=== PATIENT | female | born 1960 | race Caucasian/White ===

== ENCOUNTER 2017-10-02 13:54 | Observation (INO) ==
--- NOTE | 2017-10-02 14:33 | Emergency Department Note ---
Disposition Clinical Impression: Weakness Disposition: Still a Patient Referrals: NONE,PCP [Primary Care Provider] - General Adult [facility] - General Chief complaint: ED Weakness Stated complaint: UTI / Weakness Time Seen by Provider: 10/02/17 14:10 Source: patient Limitations: no limitations - History of Present Illness Pain Scale: 0 - Related Data Allergies Allergy/AdvReac Type Severity Reaction Status Date / Time Amoxicillin [From Augmentin] Allergy Rash Verified 10/02/17 14:01 clavulanic acid Allergy Rash Verified 10/02/17 14:01 [From Augmentin] Past Medical History - Past Medical History Medical history: Reports: non-contributory Psychiatric history: Reports: no psych history - Social History Smoking Status: Never smoker Smokeless Tobacco Status: No Alcohol use: Reports: none Drug use: Reports: none Physical Exam - General Limitations: no limitations General appearance: alert, in no apparent distress Course - Reevaluation(s) Reevaluation #1: Attestation note I did independently examine and verified the physical examination findings evaluation workup and disposition of this patient. We had independent face-to- face examination and discussion. The patient was seen with the emergency medicine resident Dr. KIRSTIE MENDEZ I examined this patient and my medical decision-making was reviewed with the Resident Physician/MOLECULAR BIOLOGY SCIENTIST/PA. I agree with the documented findings, disposition and treatment plan as described except to the extent set forth below. Briefly: 57-year-old female brought in with family with the chief complaint of weakness and possible UTI. 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 His getting to the point that she is very to thrive that the family feels that she has not been cared for in proper fashion and she is getting weaker. Patient will undergo ED evaluation including screening labs catheter UA head CT and admission. Admission disposition pending. Time: 14:31 Vital Signs Temperature 97.5 F L 10/02/17 13:55 Pulse Rate 79 10/02/17 13:55 Respiratory Rate 16 10/02/17 13:55 Blood Pressure 135/52 10/02/17 13:55 O2 Sat by Pulse Oximetry 95 10/02/17 13:55 Temperature 97.5 F L 10/02/17 14:15 Pulse Rate 79 10/02/17 14:15 Respiratory Rate 16 10/02/17 14:15 Blood Pressure 135/52 10/02/17 14:15 O2 Sat by Pulse Oximetry 95 10/02/17 14:15 Oxygen Delivery Oxygen Delivery Room Air
[2017-10-02 15:12] LABS: Basophils # 0.1 K/mcL (0.0-0.2); Basophils % 0.9 %; Eosinophils # 0.2 K/mcL (0.0-0.6); Eosinophils % 2.5 %; Hematocrit 42.2 % (35.3-44.9); Hemoglobin 13.7 g/dL (11.5-15.4); Immature Granulocytes % 0.4 % (0-4); Lymphocytes # 1.8 K/mcL (0.6-4.6); Lymphocytes % 23.8 %; Mean Corpuscular HGB Conc 32.5 g/dL (31.6-35.5); Mean Corpuscular Hemoglobin 26.1 pg (28.0-33.3); Mean Corpuscular Volume 80.5 fL (83.0-100.0); Mean Platelet Volume 9.2 fL (9.4-12.4); Monocytes # 0.7 K/mcL (0.0-1.3); Monocytes % 8.7 %; Neutrophils # 4.8 K/mcL (1.6-8.9); Platelet Count 399 K/mcL (140-400); Red Blood Count 5.24 M/mcL (3.82-4.97); Red Cell Distribution Width 14.7 % (11.5-14.5); Segmented Neutrophils % 63.7 %
[2017-10-02 15:35] LABS: Troponin I < 0.03 ng/mL (< 0.04)
[2017-10-02 15:36] LABS: Alanine Aminotransferase 11 Units/L (7-52); Albumin/Globulin Ratio 1.2 (1.1-2.2); Alkaline Phosphatase 91 Units/L (34-104); Aspartate Amino Transferase 12 Units/L (13-39); BUN/Creatinine Ratio 27 (6-26); Bilirubin,Direct 0.1 mg/dL (0.0-0.2); Bilirubin,Indirect 0.6 mg/dL (0.0-1.2); Bilirubin,Total 0.7 mg/dL (0.3-1.0); Blood Urea Nitrogen 16 mg/dL (6-20); Calcium 9.7 mg/dL (8.6-10.3); Carbon Dioxide 29 mEq/L (23-29); Chloride 104 mEq/L (98-107); Creatine Kinase 39 Units/L (30-223); Globulin 3.3 g/dL (2.4-3.5); Glucose 105 mg/dL (70-105); Osmolality,Calculated 292 (280-300); Potassium 3.9 mEq/L (3.5-5.1); Sodium 140 mEq/L (136-145); Total Protein 7.3 g/dL (6.4-8.9); eGFR For African Americans > 60 (> 60); eGFR For Non-African Americans > 60 (> 60)
[2017-10-02 15:49] LABS: Thyroid Stimulating Hormone 1.275 mcIU/mL (0.340-5.600)
[2017-10-02 16:37] LABS: Bilirubin,Urine Negative (Negative); Blood,Urine Negative (Negative); Clarity,Urine Clear (Clear); Color,Urine Yellow (Yellow); Glucose,Urine (UA) Normal (Normal); Ketones,Urine Negative (Negative); Leukocyte Esterase,Urine Negative (Negative); Nitrite,Urine Negative (Negative); PH,Urine 5.5 pH Units (5.0-8.0); Protein,Urine Negative (Neg-Trace); Specific Gravity,Urine 1.026 (1.010-1.025); Urobilinogen,Urine Normal (Normal)
--- NOTE | 2017-10-02 16:59 | Emergency Department Note ---
Disposition Clinical Impression: Weakness Failure to thrive Qualifiers: Failure to thrive age range: in adult Qualified Code(s): R62.7 - Adult failure to thrive Dysphagia Qualifiers: Dysphagia type: unspecified Qualified Code(s): R13.10 - Dysphagia, unspecified Disposition: Admitted As Inpatient Condition: Fair Referrals: NONE,PCP [Primary Care Provider] - Time of Disposition: 17:03 Weakness HPI - General Chief complaint: ED Weakness Stated complaint: UTI / Weakness Time Seen by Provider: 10/02/17 14:10 Source: patient Limitations: no limitations Nursing Notes Reviewed: Yes Vital Signs Reviewed: Yes - History of Present Illness HPI Narrative: Patient is a 57-year-old female who presents to [facility] ED with concern for generalized weakness, worsening [place]. Daughter is present who states that patient is cared for by her stepfather. States she has concerns about the state of the house as well as the care that her mother gets. States that sometimes her mother is in feces and urine and that the hospitalists badly. States that they do not have any home healthcare or any additional assistance at home. States that patient has not been in to see a physician in over 2 years. Last time she was evaluated was by the neurologist Dr. Carter who did have confirmatory testing done for [place] disease. Patient is to the point where she is unable to ambulate. Daughter states they have trouble feeding her because she has difficulty with swallowing. No chest pain or difficulty breathing. No abdominal pain or problems with urination or bowel movements. Pt Subjective Complaint: generalized weakness/fatigue Onset (ago): week(s) Duration: gradually worsening Location: generalized Pain Scale: 0 Improves with: none Worsens with: none Associated symptoms: Denies: chest pain, fever/chills, nausea/vomiting, shortness of breath - Related Data Home Medications Medication Instructions Recorded Confirmed No Known Home Drugs 10/02/17 10/02/17 Allergies Allergy/AdvReac Type Severity Reaction Status Date / Time Amoxicillin [From Augmentin] Allergy Rash Verified 10/02/17 14:39 clavulanic acid Allergy Rash Verified 10/02/17 14:39 [From Augmentin] All systems ED: reviewed and negative except as stated. Past Medical History - Past Medical History Attestation: Yes The following information was validated with the patient. Source: patient Medical history: Reports: other ([place] disease) Psychiatric history: Reports: no psych history - Social History Smoking Status: Never smoker Smokeless Tobacco Status: No Alcohol use: Reports: none Drug use: Reports: none Physical Exam - General Limitations: no limitations General appearance: alert, in no apparent distress, cachectic, other (chorea noted) - Head Head exam: atraumatic, normocephalic, normal inspection - Eye Eye exam: Present: normal appearance, PERRL, EOMI - ENT ENT exam: normal exam, normal oropharynx, mucous membranes moist - Neck Neck exam: Present: normal inspection, full ROM, trachea midline - Chest Chest inspection: Present: normal inspection, symmetric chest wall rise - Respiratory Respiratory exam: Present: normal lung sounds bilaterally - Cardiovascular Cardiovascular exam: Present: regular rate, normal rhythm, normal heart sounds - Abdominal Exam Abdominal exam: Present: soft, Non-Tender. Absent: tenderness, distention, guarding, rebound, rigidity - Extremities Exam Extremities exam: Present: normal inspection, full ROM. Absent: tenderness, pedal edema - Back Exam Back exam: Present: normal inspection, full ROM. Absent: tenderness - Neurological Exam Neurological exam: Present: alert, other (chorea present) - Psychiatric Psychiatric exam: Present: normal affect, normal mood - Skin Skin exam: Present: warm, dry, intact, normal color Course Course Narrative: Patient seen and examined. Family concern for inability to care for the patient without any additional assistance at home. Concern for possible urinary tract infection or worsening weakness. She is unable to walk at this point. Basic lab work, CT of the head, urine analysis and chest x-ray ordered. We will evaluate for any sources of infection that could be making the patient 's condition worse. We will likely admit for either social placement or home health care establishment. - Reevaluation(s) Reevaluation #1: Labwork, urine analysis unremarkable. Her CT head is normal. Chest x-ray also unremarkable. I discussed with hospitalist Dr. Patel who has accepted for admission for social work consultation. Time: 17:02 Vital Signs Temperature 97.5 F L 10/02/17 13:55 Pulse Rate 79 10/02/17 13:55 Respiratory Rate 16 10/02/17 13:55 Blood Pressure 135/52 10/02/17 13:55 O2 Sat by Pulse Oximetry 95 10/02/17 13:55 Temperature 97.5 F L 10/02/17 14:15 Pulse Rate 79 10/02/17 14:15 Respiratory Rate 16 10/02/17 14:15 Blood Pressure 135/52 10/02/17 14:15 O2 Sat by Pulse Oximetry 95 10/02/17 14:15 Oxygen Delivery Oxygen Delivery Room Air Weakness - Medical Records Medical records reviewed: Yes I reviewed the patient's medical records. - Lab Data Lab results reviewed: Yes I reviewed the patient's lab results. Result diagrams: 10/02/17 15:03 10/02/17 15:03 Lab Results 10/02/17 10/02/17 10/02/17 Range/Units 15:03 15:03 16:25 WBC 7.6 (4.3-11.1) K/mcL RBC 5.24 H (3.82-4.97) M/mcL Hgb 13.7 (11.5-15.4) g/dL Hct 42.2 (35.3-44.9) % MCV 80.5 L (83.0-100.0) fL MCH 26.1 L (28.0-33.3) pg MCHC 32.5 (31.6-35.5) g/dL RDW 14.7 H (11.5-14.5) % Plt Count 399 (140-400) K/mcL MPV 9.2 L (9.4-12.4) fL Immature Gran % 0.4 (0-4) % Seg Neutrophils % 63.7 % Lymphocytes % 23.8 % Monocytes % 8.7 % Eosinophils % 2.5 % Basophils % 0.9 % Neutrophils # 4.8 (1.6-8.9) K/mcL Lymphocytes # 1.8 (0.6-4.6) K/mcL Monocytes # 0.7 (0.0-1.3) K/mcL Eosinophils # 0.2 (0.0-0.6) K/mcL Basophils # 0.1 (0.0-0.2) K/mcL Sodium 140 (136-145) mEq/L Potassium 3.9 (3.5-5.1) mEq/L Chloride 104 (98-107) mEq/L Carbon Dioxide 29 (23-29) mEq/L BUN 16 (6-20) mg/dL Creatinine 0.60 (0.60-1.20) mg/dL Est GFR ( Amer) > 60 (> 60) Est GFR (Non-Af Amer) > 60 (> 60) BUN/Creatinine Ratio 27 H (6-26) Glucose 105 (70-105) mg/dL Calculated Osmolality 292 (280-300) Calcium 9.7 (8.6-10.3) mg/dL Total Bilirubin 0.7 (0.3-1.0) mg/dL Direct Bilirubin 0.1 (0.0-0.2) mg/dL Indirect Bilirubin 0.6 (0.0-1.2) mg/dL AST 12 L (13-39) Units/L ALT 11 (7-52) Units/L Alkaline Phosphatase 91 (34-104) Units/L Creatine Kinase 39 (30-223) Units/L Troponin I < 0.03 (< 0.04) ng/mL Serum Total Protein 7.3 (6.4-8.9) g/dL Albumin 4.0 (3.5-5.7) g/dL Globulin 3.3 (2.4-3.5) g/dL Albumin/Globulin Ratio 1.2 (1.1-2.2) TSH 1.275 (0.340-5.600) mcIU/mL Urine Color Yellow (Yellow) Urine Clarity Clear (Clear) Urine pH 5.5 (5.0-8.0) pH Units Ur Specific [place] 1.026 H (1.010-1.025) Urine Protein Negative (Neg-Trace) mg/dL Urine Glucose (UA) Normal (Normal) mg/dL Urine Ketones Negative (Negative) mg/dL Urine Blood Negative (Negative) Urine Nitrite Negative (Negative) Urine Bilirubin Negative (Negative) Urine Urobilinogen Normal (Normal) mg/dL Ur Leukocyte Esterase Negative (Negative) Ur Culture Indicated? NO (NO) - Radiology Data Radiology results reviewed: Yes I reviewed the patient's radiology results. Chest X-Ray 10/02/17 14:23 IMPRESSION: No acute process. D/ / Ky Castro MD / Ky Castro MD Interpreting Provider: Ky Castro MD Head CT 10/02/17 14:24 IMPRESSION: No acute intracranial abnormality. D/ / Armand Duffy MD / Armand Duffy MD Interpreting Provider: Armand Duffy MD - EKG Data EKG attestation: Yes I reviewed and interpreted this EKG. EKG results narrative: EKG done at 1433 shows normal sinus rhythm with a rate of [address] elevation or depression. Normal axis.
[2017-10-02] MEDS ORDERED: Naloxone 0.4 MG/ML INJ IVP PRN (18:27)
--- NOTE | 2017-10-02 18:32 | Internal Med History&Physical ---
Date of Encounter: 10/02/17 Time of Encounter: 18:27 Internal Medicine - H&P: HPI Chief complaint: Worsening [place] chorea, recurrent fall, dysphagia Admitted From: Home Plans for Post Hospital Care: Home History of present illness: Ms. Paiz is a 57 year old female with history of chronic [place] disease diagnosed 14 years ago and has been under care of neurologist Dr. Callahan presents to [facility] with concern for generalized weakness, recurrent fall, questionable swallowing difficulty and worsening [place]'s chorea. Patient is poor historian therefore mostly in formation was provided by her daughter who is present at bedside Daughter states that not good care of her mother at home and she found that sometimes her mother is in feces and urine . She brought to to ER to have assistance with home health care or long-term placement with the help of social media executive, speech evaluation, physiotherapy evaluation. Patient does not have primary care physician. Currently she is not on any medication. Patient unable to ambulate and has recurrent fall. patient has not been in to see a physician in over 2 years. Last time she was evaluated was by the neurologist Dr. Carter who did have confirmatory testing done for [place] disease and some medication was restarted but patient is stopped taking as she had some side effect. Patient denies fever, chills, nausea, vomiting, headache, dizziness, chest pain , shortness of breath, abdominal pain, diarrhea. She has chronic urine incontinence. Past Med Surg Social Fam HX - Past Medical History Medical history: other Psychiatric history: no psych history - Social History Smoking Status: Never smoker Smokeless Tobacco Status: No Alcohol use: none Drug use: none - Family History Mother Hx Family Cardiac Disorders: No Hx Family Respiratory Disorders: No Hx Family Cancer: No Hx Family GI Disorders: No Hx Family Genitourinary Disorders: No Hx Family Endocrine Disorder: No Hx Family Musculoskeletal Disorders: Yes ([place]) Hx Family Neuromuscular Disorders: Yes ([place]) Hx Family Neurologic Disorders: No Hx Family HEENT Disorders: No Hx Family Autoimmune Disorders: No Hx Family Reproductive Disorders: No Hx Family Psychosocial Disorders: No Father Hx Family Cardiac Disorders: No Hx Family Respiratory Disorders: No Hx Family Cancer: No Hx Family GI Disorders: No Hx Family Genitourinary Disorders: No Hx Family Endocrine Disorder: No Hx Family Musculoskeletal Disorders: No Hx Family Neuromuscular Disorders: No Hx Family Neurologic Disorders: No Hx Family HEENT Disorders: No Hx Family Autoimmune Disorders: No Hx Family Reproductive Disorders: No Hx Family Psychosocial Disorders: No Hx Family Medical Disorders: No Internal Medicine - H&P: Meds No Known Home Drugs 10/02/17 [History] 3 Allergy/AdvReac Type Severity Reaction Status Date / Time Amoxicillin [From Augmentin] Allergy Rash Verified 10/02/17 14:39 clavulanic acid Allergy Rash Verified 10/02/17 14:39 [From Augmentin] All Systems PM: as documented above in the HPI. - Constitutional Vitals: Temp Pulse Resp BP Pulse Ox 97.4 F L 87 14 117/79 100 10/02/17 17:32 10/02/17 17:32 10/02/17 17:32 10/02/17 17:32 10/02/17 17:32 Exam: General appearance: Alert awake oriented 2. Family at bedside. Limited communication due to ongoing chronic but worsening speech problem as per daughter Head exam: Atraumatic Eye exam: EOMI, PERRLA ENT exam: Moist oral mucosa Neck nontender, supple Respiratory exam: Clear to auscultation bilaterally Cardiovascular exam: Regular rate and rhythm, no systolic murmur Abdominal exam: Soft, nontender, nondistended, positive bowel sounds Extremities exam: No calf tenderness, no pedal edema Present: Skin-no rash, warm, dry, intact Neurological exam: Alert, awake, oriented 3, CN II-XII intact, no focal deficits. No facial droop. Patient cannot walk due to generalized weakness and chorea. Motor strength symmetrical in all extremity 4-5 x 5. Internal Med - H&P Results - Labs CBC & Chem 7: 10/02/17 15:03 10/02/17 15:03 Labs: Urine 10/02/17 Range/Units 16:25 Urine Color Yellow (Yellow) Urine Clarity Clear (Clear) Urine pH 5.5 (5.0-8.0) pH Units Ur Specific [place] 1.026 H (1.010-1.025) Urine Protein Negative (Neg-Trace) mg/dL Urine Glucose (UA) Normal (Normal) mg/dL - Assessment and plan (1) [place] chorea Current Visit: Yes Status: Acute Assessment and plan: Progress on of disease as nature course. Patient also has a speech problem and difficulty in swallowing therefore will consult a speech therapist. Keep patient nothing by mouth for now. Consulted neurologists for expert opinion that will help in making long-term plan for the patient. Fall, aspiration precaution. piggery worker consulted for the discharge plan and placement (2) Generalized weakness Current Visit: Yes Status: Acute Assessment and plan: Most likely due to progression of the disease. Patient is not ambulating. Physiotherapist consulted. Fall risk prevention protocol (3) DVT prophylaxis Current Visit: Yes Status: Acute Assessment and plan: SCDs - Time Spent With Patient Total time spent is greater than 50% in coordination of care (as documented) at patient's floor/unit and/or counseling patient: 25 - 35 minutes
[2017-10-02] MEDS: 0.9 % Sodium Chloride 1,000 ML IVC SCH (19:32)
[2017-10-03 09:34] LABS: Basophils # 0.1 K/mcL (0.0-0.2); Eosinophils # 0.2 K/mcL (0.0-0.6); Eosinophils % 3.5 %; Hematocrit 38.2 % (35.3-44.9); Hemoglobin 12.2 g/dL (11.5-15.4); Immature Granulocytes % 0.1 % (0-4); Lymphocytes # 2.2 K/mcL (0.6-4.6); Lymphocytes % 32.1 %; Mean Corpuscular HGB Conc 31.9 g/dL (31.6-35.5); Mean Corpuscular Hemoglobin 26.1 pg (28.0-33.3); Mean Corpuscular Volume 81.8 fL (83.0-100.0); Mean Platelet Volume 9.5 fL (9.4-12.4); Monocytes # 0.6 K/mcL (0.0-1.3); Monocytes % 8.7 %; Neutrophils # 3.7 K/mcL (1.6-8.9); Platelet Count 365 K/mcL (140-400); Red Blood Count 4.67 M/mcL (3.82-4.97); Red Cell Distribution Width 14.7 % (11.5-14.5); Segmented Neutrophils % 54.6 %
[2017-10-03 09:53] LABS: Alanine Aminotransferase 10 Units/L (7-52); Albumin 3.4 g/dL (3.5-5.7); Albumin/Globulin Ratio 1.1 (1.1-2.2); Alkaline Phosphatase 75 Units/L (34-104); Aspartate Amino Transferase 12 Units/L (13-39); BUN/Creatinine Ratio 30 (6-26); Bilirubin,Total 0.7 mg/dL (0.3-1.0); Blood Urea Nitrogen 16 mg/dL (6-20); Carbon Dioxide 30 mEq/L (23-29); Chloride 108 mEq/L (98-107); Globulin 3.2 g/dL (2.4-3.5); Glucose 83 mg/dL (70-105); Osmolality,Calculated 294 (280-300); Potassium 3.9 mEq/L (3.5-5.1); Sodium 142 mEq/L (136-145); Total Protein 6.6 g/dL (6.4-8.9); eGFR For African Americans > 60 (> 60); eGFR For Non-African Americans > 60 (> 60)
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
[2017-10-03] MEDS: risperiDONE 0.25 MG TABLET PO SCH (12:09)
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
[2017-10-03] MEDS: 0.9 % Sodium Chloride 1,000 ML IVC SCH (16:22)
[2017-10-04] MEDS: risperiDONE 0.25 MG TABLET PO SCH (08:16)
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
--- NOTE | 2017-10-04 10:47 | Physician Discharge Referral ---
Home Health/Hosp Referral Info Transfer to: Home Health Provider in Charge Post Discharge: Other (Neurologist Dr. Carter) - Diagnosis (1) [place] chorea Status: Acute (2) Generalized weakness Status: Acute (3) Failure to thrive Status: Acute (4) Severe protein-calorie malnutrition Status: Acute (5) DVT prophylaxis Status: Acute - Respiratory Orders Smoking Cessation: Smoking cessation has been advised. For more information, call the [employer] [place] Tobacco Quit Line at 3-469-YJVA-NOW. - Services Needed Following services are medically necessary services: Nursing, Home Health Aide, Physical Therapy, Occupational Therapy - Transfer Medications Prescriptions: risperiDONE [RisperDAL] 0.25 mg PO DAILY #30 tablet Home Medications: risperiDONE [RisperDAL] 0.25 mg PO DAILY #30 tablet 10/04/17 [Rx] Allergies/Adverse Reactions: 3 Allergy/AdvReac Type Severity Reaction Status Date / Time Amoxicillin [From Augmentin] Allergy Rash Verified 10/02/17 14:39 clavulanic acid Allergy Rash Verified 10/02/17 14:39 [From Augmentin] Certification: Further, I certify that my clinical findings support that this patient is homebound (i.e. absences from home require considerable and taxing effort and are for medical reasons or congregation services or infrequently or short duration when for other reasons) because: Homebound Reason: Patient requires assistance of a person or device to safely leave home Attestation: My signature below is to certify that this patient is under my care and that I, or nurse practitioner, or a physician's engineering assistant working with me, has a face-to -face encounter with this patient.
[2017-10-04 10:49] VITALS: BP 139/86
[2017-10-04] MEDS ORDERED: Permethrin Cream Rinse 60 ML LIQUID TP ONE (13:48)
--- NOTE | 2017-10-04 14:27 | Electrocardiograph Report ---
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
== END 2017-10-04 17:30 | disposition home health service (06) ==
LOC: 3BNU 13:54 → EMEROO 13:54 → 3BNU 17:17
PROVIDERS: ADMIT General Practice; ATTEND General Practice